=== PATIENT | female | born 1975 | race Caucasian/White ===

== ENCOUNTER 2017-06-30 05:35 | Day surgery (SDC) | payer BC ==
[2017-06-30 06:45] LABS: ADD MAN DIFF? NO
[2017-06-30 06:53] LABS: WHITE BLOOD COUNT 7.6 10^3/ul (4.8-10.8)
[2017-06-30 06:53] LABS: BASOPHILS % 0.4 % (0.0-2.0); EOSINOPHILS # 0.2 10^3/ul (0.0-0.5); HEMATOCRIT 35.6 % (37.0-47.0); HEMOGLOBIN 12.1 g/dl (12.0-16.0); LYMPHOCYTES # 2.5 10^3/ul (0.8-2.9); LYMPHOCYTES % 33.3 % (15.0-51.0); MEAN CORPUSCULAR HEMOGLOBIN 27.6 pg (29.0-33.0); MEAN CORPUSCULAR VOLUME 81.3 fl (82.0-101.0); MEAN PLATELET VOLUME 10.3 fl (7.4-10.4); MONOCYTE # 0.6 10^3/ul (0.3-0.9); MONOCYTES % 8.3 % (0.0-11.0); NEUTROPHIL # 4.2 10^3/ul (1.6-7.5); NEUTROPHILS % 54.7 % (39.0-77.0); PLATELET COUNT 268 10^3/UL (140-415); RED BLOOD COUNT 4.38 10^6/ul (4.20-5.40); RED CELL DISTRIBUTION WIDTH 12.9 % (11.5-14.5)
[2017-06-30] MEDS ORDERED: CEFAZOLIN 1 GM INJ (07:00)
[2017-06-30] MEDS ORDERED: MIDAZOLAM 1 MG/ML 2 ML INJ (07:39)
[2017-06-30] MEDS ORDERED: FENTAnyl 50 MCG/ML VIAL ×3 (07:39→09:04)
[2017-06-30] MEDS ORDERED: NEOSTIGMINE 3 MG/3 ML SYRINGE (08:30)
[2017-06-30] MEDS ORDERED: LIDOCAINE 2% (SDV) 5 ML INJ (08:30)
[2017-06-30] MEDS ORDERED: PROPOFOL 20 ML (08:30)
[2017-06-30] MEDS ORDERED: ROCURONIUM 50 MG INJ (08:30)
[2017-06-30] MEDS ORDERED: GLYCOPYRROLATE 0.4 MG INJ (08:30)
[2017-06-30] MEDS ORDERED: ONDANSETRON 4 MG INJ (08:37)
[2017-06-30] MEDS ORDERED: FENTAnyl 50 MCG/ML VIAL IV (09:00)
[2017-06-30] MEDS ORDERED: DIPHENHYDRAMINE 50 MG INJ IV (09:00)
[2017-06-30] MEDS ORDERED: ONDANSETRON 4 MG INJ IV (09:00)
[2017-06-30] MEDS ORDERED: MEPERIDINE 25 MG INJ IV (09:00)
[2017-06-30] MEDS: FENTAnyl 50 MCG/ML VIAL IV (09:05)
== END 2017-06-30 10:45 | disposition home or self-care (01) ==
LOC: SDS 05:35
DX: Z30.2 Encounter for sterilization (principal); E66.9 Obesity, unspecified; Z68.32 Body mass index [BMI] 32.0-32.9, adult
CPT/HCPCS: 58670; 85025; 86850; 86900; 86901